=== PATIENT | female | born 1990 | race American Indian/Alaskan Native ===

== ENCOUNTER 2017-02-13 13:24 | Emergency (ER) | payer SELFPAY ==
[2017-02-13 14:25] VITALS: BP 151/96
[2017-02-13] MEDS ORDERED: TORADOL IM ONE (17:43)
[2017-02-13] MEDS ORDERED: DELTASONE PO ONE (17:43)
--- NOTE | 2017-02-13 18:43 | Emergency Department Report ---
Entered by MOIRA DIAZ, acting as scribe for RUBIO ESPINOZA PA. ED ENT HPI - General Chief complaint: Sore Throat Stated complaint: TONSILS SWOLLEN Time Seen by Provider: 02/13/17 16:47 Source: patient Mode of arrival: Ambulatory Limitations: No Limitations - History of Present Illness Initial comments: 27 year old female presents to the ED for evaluation of sore throat and posterior upper right tooth pain (tooth #1) secondary to broken tooth for 4 days. She reports pain with swallowing and notes pain improved with Lortab. Denies fever, chills, cough, chest pain, shortness of breath, abdominal pain, and N/V/D. MD complaint: tooth pain (posterior upper right, tooth #1), sore throat Onset/Timin -: days(s) Location: throat, tooth # (right posterior upper tooth (tooth #1)) Severity scale (0 -10): 10 Quality: aching, constant Improves with: other (Lortab) Worsens with: swallowing, eating Context- Dental: history of dental caries, poor dental care Associated Symptoms: toothache, pain with swallowing, sore throat. denies: fever, cough, gum swelling, discharge from ear, rhinorrhea - Related Data Previous Rx's Medication Instructions Recorded Last Taken Type Amoxicillin [Amoxicillin TAB] 875 mg PO BID #20 tablet 02/13/17 Unknown Rx Ibuprofen [Motrin] 600 mg PO Q8H PRN #15 tablet 02/13/17 Unknown Rx Allergies Allergy/AdvReac Type Severity Reaction Status Date / Time No Known Allergies Allergy Unverified 02/13/17 14:21 ED Dental HPI - General Chief complaint: Sore Throat Stated complaint: TONSILS SWOLLEN Time Seen by Provider: 02/13/17 16:47 Source: patient Mode of arrival: Ambulatory Limitations: No Limitations - Related Data Previous Rx's Medication Instructions Recorded Last Taken Type Amoxicillin [Amoxicillin TAB] 875 mg PO BID #20 tablet 02/13/17 Unknown Rx Ibuprofen [Motrin] 600 mg PO Q8H PRN #15 tablet 02/13/17 Unknown Rx Allergies Allergy/AdvReac Type Severity Reaction Status Date / Time No Known Allergies Allergy Unverified 02/13/17 14:21 ED Review of Systems Comment: All other systems reviewed and negative Constitutional: denies: chills, fever ENT: throat pain, dental pain. denies: ear pain, congestion Respiratory: denies: cough, shortness of breath, SOB with exertion, SOB at rest , stridor, wheezing Cardiovascular: denies: chest pain, palpitations, edema, syncope Gastrointestinal: denies: abdominal pain, nausea, vomiting, diarrhea Musculoskeletal: denies: back pain, arthralgia Skin: denies: rash Neurological: denies: headache, weakness, numbness, paresthesias, confusion, abnormal gait, vertigo ED Past Medical Hx - Past Medical History Previous Medical History?: No - Surgical History Past Surgical History?: Yes Additional Surgical History: - Family History Family history: no significant - Social History Smoking Status: Never Smoker Substance Use Type: Alcohol, Non Opiate Pain - Medications Home Medications: Home Medications Medication Instructions Recorded Confirmed Last Taken Type Amoxicillin [Amoxicillin TAB] 875 mg PO BID #20 tablet 02/13/17 Unknown Rx Ibuprofen [Motrin] 600 mg PO Q8H PRN #15 tablet 02/13/17 Unknown Rx ED Physical Exam - General Limitations: No Limitations General appearance: alert, in no apparent distress - Head Head exam: Present: atraumatic, normocephalic, other - Eye Eye exam: Present: normal appearance, PERRL, EOMI, other Pupils: Present: other - ENT ENT exam: Present: mucous membranes moist, other - Expanded ENT Exam Expanded Ear exam: Present: normal external inspection Mouth exam: Present: tongue normal. Absent: drooling, trismus, muffled voice, tongue elevation Teeth exam: Present: dental caries (diffusely), fractured tooth # (tooth #1 ( posterior right upper tooth) broken with no pulp exposure) Throat exam: Positive: tonsillar erythema, tonsillomegaly, tonsillar exudate, other (uvula midline). Negative: R peritonsillar mass, L peritonsillar mass - Neck Neck exam: Present: normal inspection. Absent: tenderness, meningismus, full ROM, lymphadenopathy, thyromegaly - Respiratory Respiratory exam: Present: normal lung sounds bilaterally. Absent: respiratory distress, wheezes, rales, rhonchi, stridor, chest wall tenderness - Cardiovascular Cardiovascular Exam: Present: regular rate, normal rhythm, normal heart sounds. Absent: systolic murmur, diastolic murmur, rubs, gallop - GI/Abdominal GI/Abdominal exam: Present: soft, normal bowel sounds. Absent: distended, tenderness, guarding, rebound - Extremities Exam Extremities exam: Present: normal inspection, full ROM, normal capillary refill. Absent: pedal edema, other (cyanosis, clubbing, or edema) - Back Exam Back exam: Present: normal inspection, full ROM - Neurological Exam Neurological exam: Present: alert, oriented X3, normal gait, reflexes normal. Absent: motor sensory deficit - Psychiatric Psychiatric exam: Present: normal affect, normal mood - Skin Skin exam: Present: warm, dry, intact, normal color. Absent: rash, cyanosis ED Course Vital Signs 02/13/17 02/13/17 02/13/17 14:21 18:04 18:36 Temperature 98.9 F Pulse Rate 93 H Respiratory 16 18 Rate Blood Pressure 151/96 O2 Sat by Pulse 99 Oximetry - Reevaluation(s) Reevaluation #1: 02/13/17 18:36 Patient received Toradol 60 mg IM and Deltasone 60 mg by mouth ED Medical Decision Making - Medical Decision Making ED course:Based on physical exam patient with exudative pharyngitis and tonsillitis. I discussed diagnosis and treatment plan the patient and she is in agreement. Given Deltasone 60 mg by mouth and Toradol 60 mg IM and emergency room. I discussed the patient that she will need to follow-up with her primary care and she does not have an she will need to follow-up with outside Medical Center in 2-3 days. She was understanding and discharged home with prescription for Motrin and amoxicillin ED Disposition Clinical Impression: Tooth ache, Exudative pharyngitis, Tonsillitis Disposition: DISCHARGED TO HOME OR SELFCARE Is pt being admited?: No Does the pt Need Aspirin: No Condition: Stable Instructions: Pharyngitis (ED), Dental Caries (ED), Toothache (ED), Tonsillitis (ED), Strep Throat (ED) Additional Instructions: Please take antibiotic as prescribed. See dentist in discharge paperwork. This is a community dental clinic that uses sliding scale fees Prescriptions: Amoxicillin [Amoxicillin TAB] 875 mg PO BID #20 tablet Ibuprofen [Motrin] 600 mg PO Q8H PRN #15 tablet PRN Reason: Pain Referrals: [facility] [Outside] - 2-3 Days [facility] [Outside] - 2-3 Days [facility] [Outside] - 2-3 Days Forms: Work/School Release Form(ED) This documentation as recorded by the gabiibEMILY candelaria REBEKAH,accurately reflects the service I personally performed and the decisions made by me,RUBIO ESPINOZA PA.
== END 2017-02-13 18:52 | disposition home or self-care (01) ==
LOC: ED 13:24
DX: J02.9 Acute pharyngitis, unspecified (principal); J03.90 Acute tonsillitis, unspecified; K08.89 Other specified disorders of teeth and supporting structures
CPT/HCPCS: 96372; 99282; J1885; J7512